=== PATIENT | male | born 2000 | race Caucasian/White ===

== ENCOUNTER 2020-04-08 22:49 | Emergency (ER) | payer SELFPAY ==
[~2020-04-08] VITALS: Ht 182.9 cm; Wt 106.8 kg
[2020-04-08 23:12] VITALS: BP 145/91
[2020-04-08] MEDS ORDERED: HYDROcodone/APAP 7.5/325MG 1 TAB TABLET PO ONE (23:15)
[2020-04-08] MEDS ORDERED: HYDR-3165 PO (23:16)
--- NOTE | 2020-04-08 23:16 | PHYS DOC ---
Past History Past Medical History: Asthma Past Surgical History: No Surgical History Smoking: Non-smoker Alcohol Use: None Drug Use: None Adult General Chief Complaint Chief Complaint: DENTAL PROBLEM HPI HPI Patient is a 20-year-old male presenting with dental problem. He has known infected tooth at right posterior molar tooth #32 which has been seen in outpatient setting by dentist. He was subsequently diagnosed with an infected tooth and prescribed 1 week course of amoxicillin for which he completed 1 week ago. He has had ongoing pain without fever and/or concern for abscess formation or drainage since that time. He has been taking [id number] NSAIDs and Tylenol without significant pain relief prompting him to visit our ER today. He is supposed to see his dentist tomorrow for tooth extraction but reports he is unable to afford the $4000 required for this procedure. Review of Systems Review of Systems Fourteen body systems of review of systems have been reviewed. See HPI for pertinent positives and negative responses, other li all other systems are negative, non-pertinent or non-contributory Allergies Allergies Allergies Coded Allergies Type Severity Reaction Last Updated Verified No Known Drug Allergies 12/20/14 No Physical Exam Physical Exam Constitutional: Well developed, well nourished, no acute distress, non-toxic appearance. HENT: Normocephalic, atraumatic, bilateral external ears normal, oropharynx moist, no oral exudates, obviously infected tooth to right bottom posterior molar tooth #32 without fluctuant mass, expressible exudate, or other concerning signs or symptoms of abscess and/or acute infection requiring antibiotics nose normal. Eyes: PERRLA, EOMI, conjunctiva normal, no discharge. Neck: Normal range of motion, no tenderness, supple, no stridor. Cardiovascular: Heart rate regular per monitor Lungs & Thorax: No obvious respiratory distress, bilateral chest rise Abdomen: Soft nontender Skin: Warm, dry, no erythema, no rash. Back: No tenderness, no CVA tenderness. Extremities: No tenderness, no cyanosis, no clubbing, ROM intact, no edema. Neurologic: Alert and oriented X 3, grossly normal motor & sensory function, no focal deficits noted. Psychologic: Affect normal, judgement normal, mood normal. EKG EKG [] Radiology/Procedures Radiology/Procedures [] Heart Score Risk Factors: Risk Factors: DM, Current or recent (<one month) smoker, HTN, HLP, family history of CAD, obesity. Risk Scores: Risk Factors: DM, Current or recent (<one month) smoker, HTN, HLP, family history of CAD, obesity. Course & Med Decision Making Course & Med Decision Making Given comprehensive history and physical examination, patient suffering from dental problem that does not require antibiotics at this time, is not emergent and/or surgical in nature Patient here for pain control, I do feel he is in legitimate pain given his presentation and appearance of tooth. [place] 7.5 administered while in ER and patient prescribing history which was clean reviewed. I offered extremely short-term narcotic prescription with instructions to call his dentist tomorrow to discuss definitive management and/or possibility of payment plan to ensure he is able to have his tooth extracted. I educated patient extensively on the risks and benefits of excepting such narcotic pain medication, I highlighted risks such as addiction, overdose and potential Strict return precautions were discussed with good understanding by patient, all questions and concerns addressed prior to ER departure in stable condition Antonia Disclaimer Antonia Disclaimer This electronic medical record was generated, in whole or in part, using a voice recognition dictation system. Departure Departure: Impression: Primary Impression: Pain, dental Disposition: 01 DC HOME SELF CARE/HOMELESS Condition: STABLE Referrals: PCP,NO (PCP) Patient Instructions: Dental Pain Scripts Hydrocodone Bit/Acetaminophen (NORCO 5-325 TABLET) 1 Each Tablet 1 TAB PO TID for severe pain, #5 TAB Prov: JESSE ROMAN DO 04/08/20 JESSE ROMAN DO Apr 08, 2020 23:16
== END 2020-04-08 23:25 | disposition home or self-care (01) ==
LOC: ER 22:49
DX: K08.89 Other specified disorders of teeth and supporting structures (principal); K04.7 Periapical abscess without sinus; J45.909 Unspecified asthma, uncomplicated
CPT/HCPCS: 99283

== ENCOUNTER 2020-09-29 20:56 | Emergency (ER) | payer SELFPAY ==
[~2020-09-29] VITALS: Ht 182.9 cm; Wt 105.1 kg
[~2020-09-29 20:56] MED LIST: HYDR-3165 PO
--- NOTE | 2020-09-29 21:29 | RAD ---
XR CHEST 1V INDICATION: chest pain . COMPARISON STUDY: None. FINDINGS: Lungs: Normal lung volume. No pulmonary mass or consolidation. The tracheobronchial tree and hilar st ructures are normal. Pleura: No pleural effusion or pneumothorax. Heart and Mediastinum: The cardiomediastinal silhouette is normal. The great vessels of the thorax ar e normal. Bones and Soft Tissues: The bones and soft tissues are within normal limits. IMPRESSION: No acute cardiopulmonary process. Electronically signed by: Kwaku Wakefield MD (09/29/2020 9:27 PM) [facility]
--- NOTE | 2020-09-29 21:57 | PHYS DOC ---
Past History Past Medical History: Asthma Past Surgical History: No Surgical History Smoking: Non-smoker Alcohol Use: Occasionally Drug Use: None General Adult EDM: Chief Complaint: CHEST PAIN HPI: HPI: Patient is a 20-year-old male who is currently on no prescription medications who has a social history of smoking presents with a chief complaint of chest pain. Patient states he has had chest pain since Sunday. Patient states pain i s constant is located substernal and has been constant since onset. Patient states he occasionally has associated shortness of breath. No history of nausea or diaphoresis. Patient states he has a family history of cardiac disease starting with his father in his 20s. EKG performed shows a heart rate of 66 normal sinus rhythm with no acute ischemic changes. History obtained from the patient he is in no acute distress. Review of Systems: Review of Systems: Constitutional: Denies fever or chills Eyes: Denies change in visual acuity HENT: Denies nasal congestion or sore throat Respiratory: Denies cough or shortness of breath Cardiovascular: Positive chest pain GI: Denies abdominal pain, nausea, vomiting, bloody stools or diarrhea : Denies dysuria Musculoskeletal: Denies back pain or joint pain Integument: Denies rash Neurologic: Denies headache, focal weakness or sensory changes Endocrine: Denies polyuria or polydipsia Lymphatic: Denies swollen glands Psychiatric: Denies depression or anxiety Allergies: Allergies: Allergies Coded Allergies Type Severity Reaction Last Updated Verified No Known Drug Allergies 12/20/14 No Physical Exam: PE: Constitutional: Well developed, well nourished, no acute distress, non-toxic appearance. [] HENT: Normocephalic, atraumatic, bilateral external ears normal, oropharynx moist, no oral exudates, nose normal. [] Eyes: PERRLA, EOMI, conjunctiva normal, no discharge. [] Neck: Normal range of motion, no tenderness, supple, no stridor. [] Cardiovascular:Heart rate regular rhythm, no murmur [] Lungs & Thorax: Bilateral breath sounds clear to auscultation [] Abdomen: Bowel sounds normal, soft, no tenderness, no masses, no pulsatile masses. [] Skin: Warm, dry, no erythema, no rash. [] Back: No tenderness, no CVA tenderness. [] Extremities: No tenderness, no cyanosis, no clubbing, ROM intact, no edema. [] Neurologic: Alert and oriented X 3, normal motor function, normal sensory function, no focal deficits noted. [] Psychologic: Affect normal, judgement normal, mood normal. [] Current Patient Data: Vital Signs: Vital Signs Date Time Temp Pulse Resp B/P (MAP) Pulse Ox O2 Delivery O2 Flow Rate FiO2 09/29/20 21:05 97.8 68 16 147/94 (111) 99 Room Air EKG: EKG: [] EKG performed at 2101 heart rate [address] elevation no ST depression no acute [place] Radiology/Procedures: Radiology/Procedures: [] Impressions: cxr- negative Heart Score: C/O Chest Pain: Yes HEART Score for Chest Pain: HEART Score for Chest Pain Response (Comments) Value History Slighlty/Non-Suspicious 0 ECG Normal 0 Age < 45 0 Risk Factors No Risk Factors 0 Troponin < Normal Limit 0 Total 0 Risk Factors: Risk Factors: DM, Current or recent (<one month) smoker, HTN, HLP, family history of CAD, obesity. Risk Scores: Score 0 - 3: 2.5% MACE over next 6 weeks - Discharge Home Score 4 - 6: 20.3% MACE over next 6 weeks - Admit for Clinical Observation Score 7 - 10: 72.7% MACE over next 6 weeks - Early Invasive Strategies Course & Med Decision Making: Course & Med Decision Making Pertinent Labs and Imaging studies reviewed. (See chart for details) [] Chest x-ray-no acute abnormality Antonia Disclaimer: Antonia Disclaimer: This electronic medical record was generated, in whole or in part, using a voice recognition dictation system. Departure Departure: Impression: Primary Impression: Chest pain Disposition: HOME / SELF CARE / HOMELESS Condition: STABLE Referrals: PCP,NO (PCP) Patient Instructions: Chest Pain (Nonspecific) DENI DE LEON I DO September 29, 2020 21:57
[2020-09-29 22:10] VITALS: BP 141/61
== END 2020-09-29 22:15 | disposition home or self-care (01) ==
LOC: ER 20:56
DX: R07.89 Other chest pain (principal); J45.909 Unspecified asthma, uncomplicated
CPT/HCPCS: 36415; 71045; 84484; 99284-25

== ENCOUNTER 2020-10-01 10:19 | Emergency (ER) | payer SELFPAY ==
[~2020-10-01] VITALS: Ht 182.9 cm; Wt 104.0 kg
[2020-10-01 10:25] VITALS: BP 124/74
--- NOTE | 2020-10-01 10:55 | RAD ---
Exam performed: Right hand 3 views. Indication: Patient punched a wall. Date of Service: 10/01/2020 Comparison: None available Discussion: PA, oblique lateral radiographs of the hand is obtained. There is a minimally displaced fracture base of fifth metacarpal, best seen on lateral image. There is associated soft tissue swelling. No soft t issue foreign bodies identified. Impression: Minimally displaced fracture base of fifth metacarpal with associated soft tissue swellin g Electronically signed by: Noreen Matthew MD (10/01/2020 10:52 AM) [id number]
--- NOTE | 2020-10-01 11:03 | PHYS DOC ---
Past History Past Medical History: Asthma Past Surgical History: No Surgical History Smoking: Non-smoker Alcohol Use: Occasionally Drug Use: None General Adult EDM: Chief Complaint: HAND PROBLEM HPI: HPI: 20-year-old male presents with right hand pain. The patient punched a wall yesterday and now has pain at the base of the fifth digit of the right hand. It is swollen and there is an abrasion in this area. He is concerned about frac ture. Review of Systems: Review of Systems: Constitutional: Denies fever or chills Eyes: Denies change in visual acuity HENT: Denies nasal congestion or sore throat Respiratory: Denies cough or shortness of breath Cardiovascular: Denies chest pain or edema GI: Denies abdominal pain, nausea, vomiting, bloody stools or diarrhea : Denies dysuria Musculoskeletal: Right medial hand pain Integument: Denies rash Neurologic: Denies headache, focal weakness or sensory changes Endocrine: Denies polyuria or polydipsia Lymphatic: Denies swollen glands Psychiatric: Denies depression or anxiety Allergies: Allergies: Allergies Coded Allergies Type Severity Reaction Last Updated Verified No Known Drug Allergies 10/01/20 No Physical Exam: PE: Constitutional: Well developed, well nourished, no acute distress, non-toxic a ppearance. [] HENT: Normocephalic, atraumatic, bilateral external ears normal, oropharynx moist, no oral exudates, nose normal. [] Eyes: PERRLA, EOMI, conjunctiva normal, no discharge. [] Neck: Normal range of motion, no tenderness, supple, no stridor. [] Cardiovascular:Heart rate regular rhythm, no murmur [] Lungs & Thorax: Bilateral breath sounds clear to auscultation [] Abdomen: Bowel sounds normal, soft, no tenderness, no masses, no pulsatile masses. [] Skin: Warm, dry, no erythema, no rash. [] Back: No tenderness, no CVA tenderness. [] Extremities: Right hand with swelling and abrasion at the base of the fifth digit, ecchymosis. [] Neurologic: Alert and oriented X 3, normal motor function, normal sensory function, no focal deficits noted. [] Psychologic: Affect normal, judgement normal, mood normal. [] Current Patient Data: Vital Signs: Vital Signs Date Time Temp Pulse Resp B/P (MAP) Pulse Ox O2 Delivery O2 Flow Rate FiO2 10/01/20 10:25 98.4 82 14 124/74 (91) 95 EKG: EKG: [] Radiology/Procedures: Radiology/Procedures: [] Impressions: Exam performed: Right hand 3 views. Indication: Patient punched a wall. Date of Service: 10/01/2020 Comparison: None available Discussion: PA, oblique lateral radiographs of the hand is obtained. There is a minimally displaced fracture base of fifth metacarpal, best seen on lateral image. There is associated soft tissue swelling. No soft tissue foreign bodies identified. Impression: Minimally displaced fracture base of fifth metacarpal with associated soft tissue swelling Electronically signed by: Noreen Matthew MD (10/01/2020 10:52 AM) [id number] DICTATED AND SIGNED BY: NOREEN MATTHEW MD DATE: 10/01/20 1050 CC: MINNIE COLEMAN DO; PCP,NO ~MTH0 0 Heart Score: C/O Chest Pain: N/A Risk Factors: Risk Factors: DM, Current or recent (<one month) smoker, HTN, HLP, family his tory of CAD, obesity. Risk Scores: Score 0 - 3: 2.5% MACE over next 6 weeks - Discharge Home Score 4 - 6: 20.3% MACE over next 6 weeks - Admit for Clinical Observation Score 7 - 10: 72.7% MACE over next 6 weeks - Early Invasive Strategies Course & Med Decision Making: Course & Med Decision Making Pertinent Labs and Imaging studies reviewed. (See chart for details) The patient has a minimally displaced fracture of the base of the right fifth digit. See official read for more details. We will place the patient in a splint and advised that he follow-up with orthopedics for definitive care. He is stable for discharge at this time. [] Dragon Disclaimer: Dragon Disclaimer: This electronic medical record was generated, in whole or in part, using a voice recognition dictation system. Departure Departure: Impression: Primary Impression: Fracture of metacarpal of right hand, closed Qualified Codes: S62.316A - Displaced fracture of base of fifth metacarpal bone, right hand, initial encounter for closed fracture Disposition: HOME / SELF CARE / HOMELESS Condition: STABLE Referrals: PCP,NO (PCP) Patient Instructions: Hand Fracture, Fifth Metacarpal MINNIE COLEMAN DO October 01, 2020 11:03
== END 2020-10-01 11:30 | disposition home or self-care (01) ==
LOC: ER 10:19
DX: S62.316B Displaced fracture of base of fifth metacarpal bone, right hand, initial encounter for open fracture (principal); J45.909 Unspecified asthma, uncomplicated; W22.8XXA Striking against or struck by other objects, initial encounter; Y93.89 Activity, other specified; Y92.89 Other specified places as the place of occurrence of the external cause; Y99.8 Other external cause status
CPT/HCPCS: 29125; 73130; 99283-25

== ENCOUNTER 2021-04-17 00:14 | Emergency (ER) | payer SELFPAY ==
[~2021-04-17] VITALS: Ht 185.4 cm; Wt 98.4 kg
--- NOTE | 2021-04-17 00:34 | PHYS DOC ---
Past History Past Medical History: Asthma Past Surgical History: No Surgical History Smoking: Non-smoker Alcohol Use: Occasionally Drug Use: None Adult General HPI HPI Patient is a 21-year-old male with asthma who presents with chest pain. Stated that it started a couple hours ago while he was at home, which sharp and burning in nature, with no radiation, 6 out of 10 at its worst. Denies any recent travels, traumas, illnesses, fevers, dyspnea on exertion, orthopnea, PND or edema. Denies abdominal pain, nausea, vomiting, dysuria, hematuria, blood in the stool or diarrhea. Denies any known ill contacts but states he does work at [employer] so there could be ill people and he is just not aware. Denies any alcohol or drug use but does state he currently vapes and just quit smoking cigarettes. Denies any cough. Review of Systems Review of Systems Review of systems otherwise unremarkable except noted in HPI Allergies Allergies Allergies Coded Allergies Type Severity Reaction Last Updated Verified No Known Drug Allergies 10/01/20 No Physical Exam Physical Exam Constitutional: Well developed, well nourished, no acute distress, non-toxic appearance. [] HENT: Normocephalic, atraumatic, bilateral external ears normal, oropharynx moist, no oral exudates, nose normal. [] Eyes: conjunctiva normal, no discharge. [] Neck: Normal range of motion, no tenderness, supple, no stridor. [] Cardiovascular:Heart rate regular rhythm, no murmur [] Lungs & Thorax: Bilateral breath sounds clear to auscultation [] Abdomen: soft, no tenderness, no masses, no pulsatile masses. [] Skin: Warm, dry, no erythema, no rash. [] Back: No tenderness, no CVA tenderness. [] Extremities: No tenderness, no cyanosis, no clubbing, ROM intact, no edema. [] Neurologic: Alert and oriented X 3, normal motor function, normal sensory function, no focal deficits noted. [] Psychologic: Affect normal, judgement normal, mood normal. [] EKG EKG [] Radiology/Procedures Radiology/Procedures [] Heart Score C/O Chest Pain: Yes HEART Score for Chest Pain: HEART Score for Chest Pain Response (Comments) Value History Slighlty/Non-Suspicious 0 ECG Normal 0 Age < 45 0 Risk Factors 1 or 2 Risk Factors 1 Troponin < Normal Limit 0 Total 1 Risk Factors: Risk Factors: DM, Current or recent (<one month) smoker, HTN, HLP, family history of CAD, obesity. Risk Scores: Risk Factors: DM, Current or recent (<one month) smoker, HTN, HLP, family history of CAD, obesity. Course & Med Decision Making Course & Med Decision Making Patient is a 21-year-old male who presents with a chief pain of sharp burning chest pain Vital signs not concerning. Physical exam noted above. EKG with normal rate, normal rhythm, normal QRS, normal QTC and no STEMI. Troponin normal. Chest x- ray not concerning. Patient with no symptoms in the ED. Does state that he has a history of heartburn as well as gave a GI cocktail and advised on GERD evaluation, treatment and management at home and with his primary care physician. Advised to follow-up soon as you can with primary care physician to update on ED visit and set up a follow-up for continued valuation treatment. Gave return precautions to the ED. Patient grateful, verbalized understanding and agree with plan of discharge. Dragon Disclaimer Dragon Disclaimer This electronic medical record was generated, in whole or in part, using a voice recognition dictation system. Departure Departure: Impression: Primary Impression: Chest pain Disposition: HOME / SELF CARE / HOMELESS Condition: GOOD Referrals: PCP,DESTINY (PCP) JUAN ALBERTO BURGESS MD Patient Instructions: Chest Pain (Nonspecific) Additional Instructions: Thank you for coming into the emergency department tonight and allowing us to take care of you. Please read the attached information carefully to go back over some of the things we discussed. DULCE BOYD MD Apr 17, 2021 00:34
[2021-04-17 01:35] VITALS: BP 117/67
--- NOTE | 2021-04-17 02:25 | RAD ---
EXAM: XR CHEST 1V 04/17/2021 12:53 AM CLINICAL INDICATION: Chest pain COMPARISON: Chest radiograph 09/29/2020 TECHNIQUE: AP upright view the chest FINDINGS: The heart is normal in size. Lungs are hypoexpanded. There is mild bibasilar atelectasis. No consolidation, pleural effusion, or pneumothorax. No acute osseous abnormality. IMPRESSION: Mild bibasilar atelectasis. No acute abnormality. Electronically signed by: Dahlia Perez MD (04/17/2021 2:23 AM) [facility]
--- NOTE | 2021-04-17 04:26 | EKG ---
[address] [address] Test Date: 2021-04-17 Test Time: 00:31:14 Pat Name: NAVEEN ARELLANO Department: Room: Gender: Soda Jerker: KAITLIN : 2000 Requested By: DULCE BOYD Order Number: [id number] Reading MD: Bob Ruiz Measurements Intervals [place] Rate: 55 P: 31 [place]: 188 QRS: 32 QRSD: 86 T: 34 QT: 366 QTc: 352 Interpretive Statements SINUS RHYTHM Electronically Signed On 04-18-2021 9:45:35 TANK CALIBRATOR by Bob Ruiz
== END 2021-04-17 01:47 | disposition home or self-care (01) ==
LOC: ER 00:14
DX: R07.89 Other chest pain (principal); J45.909 Unspecified asthma, uncomplicated
CPT/HCPCS: 36415; 71045; 84484; 93005; 99285